=== PATIENT | male | born 1965 | race Caucasian/White ===

== ENCOUNTER 2019-11-19 18:22 | Inpatient (IN) ==
[2019-11-19] MEDS ORDERED: ALUM/MAG/SIMETH/LIDO VISC 1:1 30 ML BOTTLE PO STA (20:34)
[2019-11-19] MEDS ORDERED: MORPHINE 4 MG/1 ML VIAL IV STA (20:34)
[2019-11-19] MEDS ORDERED: PROMETHAZINE 25 MG/1 ML VIAL IM STA (20:34)
[2019-11-19 20:42] LABS: Basophils % 0.4 % (0.0-0.8); Eosinophils % 0.2 % (0.00-10.9); Hematocrit 35.4 VOL% (42.0-52.0); Hemoglobin 11.3 GM/DL (14.0-18.0); Immature Granulocytes % 0.4 %; Immature Granulocytes Absolute 0.02 #; Lymphocytes # 0.8 10*3/uL (1.4-4.0); Mean Corpuscular HGB Conc 31.9 GM/DL (32-36); Mean Corpuscular Volume 83.3 FL (87-102); Mean Platelet Volume 9.6 FL (9.6-12.0); Monocytes % 6.5 % (1.7-12.7); Neutrophils % 76.5 % (38.7-73.9); Platelet Count 171 T/CUMM (130-400); Red Blood Count 4.25 MC/CUMM (3.8-5.5); Red Cell Distribution Width 13.8 % (9.3-17.3); White Blood Count 4.7 T/CUMM (4-12)
[2019-11-19 20:50] LABS: PT Patient Result 10.6 SECS (9.8-11.9)
[2019-11-19 20:58] LABS: Albumin 4.1 G/DL (3.4-5.0); Bilirubin,Total 0.5 MG/DL (0.2-1.0); Calcium 9.7 MG/DL (8.5-10.1); Osmolality,Calculated 275.5 MOS/KG (273-304)
[2019-11-19] MEDS ORDERED: DOCUSATE SODIUM 100 MG CAPSULE PO PRN (22:12)
[2019-11-19] MEDS ORDERED: hydrALAZINE 20 MG/1 ML VIAL IV PRN (22:12)
[2019-11-19] MEDS ORDERED: DEXTROSE 50% 25 GM/50 ML VIAL IV PRN (22:12)
[2019-11-19] MEDS ORDERED: ACETAMINOPHEN 325 MG TABLET PO PRN (22:12)
[2019-11-19] MEDS ORDERED: GLUCAGON 1 MG VIAL IM PRN (22:12)
[2019-11-19] MEDS ORDERED: diphenhydrAMINE CAP 25 MG CAPSULE PO PRN (22:12)
[2019-11-19] MEDS ORDERED: ZALEPLON 5 MG CAPSULE PO PRN (22:12)
[2019-11-19] MEDS ORDERED: NICOTINE 21 MG/24 HR PATCH TRANSDERM PRN (22:12)
[2019-11-19] MEDS ORDERED: ALBUTEROL 2.5 MG/3 ML NEB RESP TX PRN (22:12)
[2019-11-19] MEDS ORDERED: guaiFENesin/DM ER 600-30 MG TABLET PO PRN (22:12)
[2019-11-19] MEDS ORDERED: ENOXAPARIN 80 MG/0.8 ML SYRINGE SUBCUT ONE (22:30)
[2019-11-20] MEDS ORDERED: MORPHINE 4 MG/1 ML VIAL IV STA (03:16)
[2019-11-20] MEDS ORDERED: MORPHINE 4 MG/1 ML VIAL IM ONE (03:17)
[2019-11-20 05:13] LABS: Basophils % 0.2 % (0.0-0.8); Eosinophils # 0.1 10*3/uL (0.0-0.87); Eosinophils % 1.3 % (0.00-10.9); Hematocrit 33.3 VOL% (42.0-52.0); Hemoglobin 10.9 GM/DL (14.0-18.0); Immature Granulocytes % 0.4 %; Immature Granulocytes Absolute 0.02 #; Lymphocytes # 1.3 10*3/uL (1.4-4.0); Lymphocytes % 27.9 % (21.2-54.2); Mean Corpuscular HGB Conc 32.7 GM/DL (32-36); Mean Corpuscular Volume 82.6 FL (87-102); Mean Platelet Volume 9.8 FL (9.6-12.0); Monocytes % 10.3 % (1.7-12.7); Neutrophils % 59.9 % (38.7-73.9); Platelet Count 146 T/CUMM (130-400); Red Blood Count 4.03 MC/CUMM (3.8-5.5); Red Cell Distribution Width 13.9 % (9.3-17.3); White Blood Count 4.6 T/CUMM (4-12)
[2019-11-20 05:21] LABS: Risk Ratio 2.69
[2019-11-20] MEDS: METOPROLOL TARTRATE 50 MG TABLET PO SCH ×2 (08:26→20:37)
[2019-11-20] MEDS: ASPIRIN 325 MG TABLET PO SCH (08:26)
[2019-11-20] MEDS ORDERED: diphenhydrAMINE CAP 25 MG CAPSULE PO ONE (09:01)
[2019-11-20] MEDS ORDERED: POTASSIUM CHLORIDE RIDER 10 MEQ in PREMIX 1 EACH IV PRN (09:01)
[2019-11-20] MEDS ORDERED: MAGNESIUM SULF RIDER 2 GM in PREMIX 1 EACH IV PRN (09:01)
[2019-11-20] MEDS ORDERED: DIAZEPAM 5 MG TABLET PO ONE (09:01)
[2019-11-20] MEDS ORDERED: SODIUM CHLORIDE 0.45% 1,000 ML IV SCH (09:30)
[2019-11-20] MEDS ORDERED: LIDOCAINE 1% 20 ML VIAL ONE (09:50)
[2019-11-20] MEDS ORDERED: MIDAZOLAM 2 MG/2 ML VIAL ONE (09:55)
[2019-11-20] MEDS ORDERED: fentaNYL 100 MCG/2 ML VIAL ONE (09:55)
[2019-11-20] MEDS: MORPHINE 4 MG/1 ML VIAL IV PRN ×3 (11:43→20:37)
[2019-11-20] MEDS: METOCLOPRAMIDE 10 MG/2 ML VIAL IV PRN ×2 (11:49→17:25)
[2019-11-20] MEDS: GABAPENTIN 300 MG CAPSULE PO SCH ×2 (15:31→20:36)
[2019-11-20 16:38] LABS: Hematocrit 33.5 VOL% (42.0-52.0); Hemoglobin 10.4 GM/DL (14.0-18.0)
[2019-11-20] MEDS: DIAZEPAM 5 MG TABLET PO SCH (20:36)
[2019-11-20] MEDS: PANTOPRAZOLE 40 MG VIAL IV SCH (20:37)
[2019-11-20] MEDS: ATORVASTATIN 40 MG TABLET PO SCH (20:37)
[2019-11-21] MEDS: MORPHINE 4 MG/1 ML VIAL IV PRN ×5 (05:21→21:41)
[2019-11-21 05:59] LABS: Basophils % 0.3 % (0.0-0.8); Eosinophils # 0.1 10*3/uL (0.0-0.87); Eosinophils % 2.9 % (0.00-10.9); Hematocrit 35.1 VOL% (42.0-52.0); Hemoglobin 11.1 GM/DL (14.0-18.0); Immature Granulocytes % 0.3 %; Immature Granulocytes Absolute 0.01 #; Lymphocytes # 0.9 10*3/uL (1.4-4.0); Lymphocytes % 30.2 % (21.2-54.2); Mean Corpuscular HGB Conc 31.6 GM/DL (32-36); Mean Corpuscular Volume 85.2 FL (87-102); Mean Platelet Volume 9.4 FL (9.6-12.0); Monocytes % 6.2 % (1.7-12.7); Neutrophils % 60.1 % (38.7-73.9); Platelet Count 129 T/CUMM (130-400); Red Blood Count 4.12 MC/CUMM (3.8-5.5); Red Cell Distribution Width 13.8 % (9.3-17.3); White Blood Count 3.1 T/CUMM (4-12)
[2019-11-21 06:24] LABS: % Iron Saturation 16.9 % (18-50); Ferritin 9.8 ng/ml (26-388)
[2019-11-21 06:25] LABS: Troponin I 0.127 NG/ML (0.00-0.045)
[2019-11-21 06:44] LABS: Calcium 9.1 MG/DL (8.5-10.1); Osmolality,Calculated 278.4 MOS/KG (273-304)
[2019-11-21 07:15] LABS: Sedimentation Rate-Westergren 13 MM/HR (0-20)
[2019-11-21 08:51] LABS: Folate 7.8 NG/ML (5.4-24.0); Vitamin B12 220 PG/ML (211-911)
[2019-11-21] MEDS ORDERED: ASPIRIN 325 MG TABLET PO SCH (09:00)
[2019-11-21] MEDS ORDERED: LEVOTHYROXINE 125 MCG TABLET PO SCH (09:00)
[2019-11-21 09:31] LABS: Hemoglobin A1 (Alkaline) 97.4 % (96.5-98.5); Hemoglobin A2 (Alkaline) 2.6 % (1.5-3.5)
[2019-11-21] MEDS: PANTOPRAZOLE 40 MG VIAL IV SCH ×2 (09:37→20:33)
[2019-11-21] MEDS: ASPIRIN 325 MG TABLET PO SCH (09:38)
[2019-11-21] MEDS: METOPROLOL TARTRATE 50 MG TABLET PO SCH ×2 (09:38→20:34)
[2019-11-21] MEDS: GABAPENTIN 300 MG CAPSULE PO SCH ×3 (09:38→20:34)
[2019-11-21] MEDS: METOCLOPRAMIDE 10 MG/2 ML VIAL IV PRN ×2 (09:41→18:46)
[2019-11-21] MEDS: DIAZEPAM 5 MG TABLET PO SCH (20:33)
[2019-11-21] MEDS: ATORVASTATIN 40 MG TABLET PO SCH (20:34)
[2019-11-22] MEDS: MORPHINE 4 MG/1 ML VIAL IV PRN ×4 (01:55→20:52)
[2019-11-22] MEDS: METOCLOPRAMIDE 10 MG/2 ML VIAL IV PRN ×2 (05:43→11:19)
[2019-11-22] MEDS: LEVOTHYROXINE 150 MCG TABLET PO SCH (05:47)
[2019-11-22] MEDS ORDERED: fentaNYL 100 MCG/2 ML VIAL ONE (07:47)
[2019-11-22] MEDS: PANTOPRAZOLE 40 MG VIAL IV SCH ×2 (09:06→20:52)
[2019-11-22] MEDS: FERROUS SULFATE 325 MG TABLET PO SCH (09:07)
[2019-11-22] MEDS: GABAPENTIN 300 MG CAPSULE PO SCH ×3 (09:07→20:53)
[2019-11-22] MEDS: METOPROLOL TARTRATE 50 MG TABLET PO SCH (09:07)
[2019-11-22] MEDS: CYANOCOBALAMIN 500 MCG TABLET PO SCH (09:07)
[2019-11-22] MEDS: ASPIRIN EC 81 MG TABLET PO SCH (09:07)
[2019-11-22] MEDS ORDERED: LIDOCAINE 2% 5 ML VIAL ONE (09:30)
[2019-11-22] MEDS ORDERED: propofoL 200 MG/20 ML VIAL IV ONE (09:30)
[2019-11-22] MEDS ORDERED: PHENYLEPHRINE 1 MG/10 ML SYRINGE IV ONE (09:30)
[2019-11-22] MEDS ORDERED: RANOLAZINE 500 MG TABLET PO SCH (10:30)
[2019-11-22] MEDS: VERAPAMIL 80 MG TABLET PO SCH ×2 (14:25→20:56)
[2019-11-22] MEDS: ATORVASTATIN 40 MG TABLET PO SCH (20:53)
[2019-11-22] MEDS: DIAZEPAM 5 MG TABLET PO SCH (20:53)
[2019-11-22] MEDS ORDERED: IMIPRAMINE 25 MG TABLET PO SCH (21:00)
[2019-11-23] MEDS: LEVOTHYROXINE 150 MCG TABLET PO SCH (05:33)
[2019-11-23] MEDS: MORPHINE 4 MG/1 ML VIAL IV PRN ×2 (05:37→11:28)
[2019-11-23] MEDS ORDERED: PANTOPRAZOLE 40 MG TABLET PO SCH (07:00)
[2019-11-23] MEDS: VERAPAMIL 80 MG TABLET PO SCH (09:47)
[2019-11-23] MEDS: FERROUS SULFATE 325 MG TABLET PO SCH (09:47)
[2019-11-23] MEDS: CYANOCOBALAMIN 500 MCG TABLET PO SCH (09:47)
[2019-11-23] MEDS: GABAPENTIN 300 MG CAPSULE PO SCH (09:47)
[2019-11-23] MEDS: ASPIRIN EC 81 MG TABLET PO SCH (09:48)
[2019-11-23 11:54] VITALS: BP 135/83
== END 2019-11-23 13:30 | disposition home or self-care (01) | DRG 287 ==
LOC: N.ED 18:22 → SUATTDRO 22:12 → N.EDINP 22:12 → N.TELEN 11-20 11:34
PROVIDERS: ADMIT Internal Medicine; ATTEND Hospitalist
PROC: CLCCHCL (ICD-10-PCS; 2019-11-20 09:45)